=== PATIENT | male | born 1980 | race Caucasian/White ===

== ENCOUNTER 2018-03-08 18:56 | Emergency (ER) | payer OTHER ==
[~2018-03-08] VITALS: Ht 170.2 cm; Wt 127.0 kg
[~2018-03-08 18:56] MED LIST: AMOX1TAB12 PO; MEDROLPACK PO; NORTUSS-EX LIQ118 ML PO; TUSSI PRES-B L120 M1 PO; ZITHROMAX TRI-500 MG PO
[2018-03-09] MEDS ORDERED: LEVSIN/SL0.125 MG SL (02:37)
[2018-03-09] MEDS ORDERED: PEPCID40 MG PO (02:37)
== END 2018-03-09 02:37 ==
LOC: ER 18:56
DX: R10.11 Right upper quadrant pain (principal)

== ENCOUNTER 2018-06-06 08:53 | Emergency (ER) | payer OTHER ==
[~2018-06-06] VITALS: Ht 170.2 cm; Wt 127.5 kg
[~2018-06-06 08:53] MED LIST changes: +LEVSIN/SL0.125 MG SL; +PEPCID40 MG PO
[2018-06-06] MEDS ORDERED: TUSSI PRES-B L120 M1 PO (12:57)
[2018-06-06] MEDS ORDERED: OSEL75CA PO (12:57)
== END 2018-06-06 13:09 | disposition home or self-care (01) ==
LOC: ER 08:53
DX: B34.9 Viral infection, unspecified (principal)

== ENCOUNTER 2019-02-16 08:40 | Emergency (ER) | payer OTHER ==
[~2019-02-16] VITALS: Ht 170.2 cm; Wt 81.6 kg
[~2019-02-16 08:40] MED LIST changes: +OSEL75CA PO
[2019-02-16] MEDS ORDERED: PROTONIX (08:47)
[2019-02-16] MEDS ORDERED: TESSALON PERLE100 M1 PO (10:32)
[2019-02-16] MEDS ORDERED: PROMETH-CODEIN 65 ML PO (10:32)
[2019-02-16] MEDS ORDERED: ZITHROMAX500 MG PO (10:32)
== END 2019-02-16 11:36 | disposition home or self-care (01) ==
LOC: ER 08:40
DX: J06.9 Acute upper respiratory infection, unspecified (principal)